=== PATIENT | male | born 1980 | race African-American/Black ===

== ENCOUNTER 2023-05-03 09:20 | Outpatient (OUT) | payer OTHER, SELFPAY ==
--- NOTE | 2023-05-03 | XR_ITS ---
[address] [address] Patient Name: TAYLOR DYER MRN: [id number] date: 1980 Sex: M Assigned Patient Location: Current Patient Location: Accession/Order Number: [id number] Exam Date: 05/03/2023 09:30 Report Date: 05/03/2023 10:16 At the request of: DARIN ARRIOLA Procedure: XR ankle LT min 3V PROCEDURE: XR ankle LT min 3V COMPARISON: None. HISTORY: LEFT ANKLE PAIN/ SWELLING FINDINGS: BONES:No acute fracture or dislocation. Mild enthesopathic spurring of the calcaneus at the Achilles insertion SOFT TISSUES:Negative. No visible soft tissue swelling. EFFUSION:None visible. OTHER: Negative. XR/XR ankle LT min 3V IMPRESSION: No acute abnormality Electronically authenticated by: ANGÉLICA PRUITT Date: 05/03/2023 10:16
== END 2023-05-03 09:21 | disposition home or self-care (01) ==
PROVIDERS: Visit Provider Physician Assistant
DX: M25.572 Pain in left ankle and joints of left foot (principal)
CPT/HCPCS: 73610